=== PATIENT | female | born 1945 | race Two or more races ===

== ENCOUNTER 2020-03-05 14:35 | Inpatient (IN) | payer OTHER ==
[~2020-03-05] VITALS: Ht 157.5 cm; Wt 63.0 kg
[~2020-03-05 14:35] MED LIST: AMARY BC; ANTIVERT50 MG PO; ASPIRIN EC325 MG; COZAAR50 MG; FLEXERIL10 MG PO; GLUCOPHAGE XR500 MG PO; HYZAAR 100-121 UDTAB PO; LASIX20 MG PO; LIPOFLAVOVIT CA1 TAB PO; METOPROLOL TART50 MG; SIMVASTATIN20 MG
[2020-03-12] MEDS ORDERED: ATORVASTATIN CA10 MG PO (13:20)
[2020-03-12] MEDS ORDERED: TOPROL XL25 M1 PO (13:20)
[2020-03-12] MEDS ORDERED: ASPIR 8181 MG PO (13:21)
[2020-03-12] MEDS ORDERED: VERELAN120 MG PO (13:21)
[2020-03-12] MEDS ORDERED: OMEPRAZOLE MAGN20 MG PO (13:22)
[2020-03-12] MEDS ORDERED: OMEPRAZOLE20 M1 PO (13:22)
[2020-03-12] MEDS ORDERED: ANORO ELLIPTA1 EACH IH (13:23)
== END 2020-03-18 13:50 | disposition home or self-care (01) | DRG 331 ==
LOC: SURH 03-14 10:30 → MEDJ 03-14 10:30 → SURH 03-14 13:00 → O/R 03-14 16:22 → MEDI 03-14 16:22 → SURH 03-14 16:22 → O/R 03-15 11:31 → SURH 03-15 13:59
PROVIDERS: ADMIT Colon & Rectal Surgery; ATTEND Colon & Rectal Surgery
PROC: 07BD4ZX Excision of Aortic Lymphatic, Percutaneous Endoscopic Approach, Diagnostic (ICD-10-PCS; 2020-03-15)
PROC: 0DTF4ZZ Resection of Right Large Intestine, Percutaneous Endoscopic Approach (ICD-10-PCS; principal; 2020-03-15 07:00)
DX: C18.3 Malignant neoplasm of hepatic flexure (principal)

== ENCOUNTER 2020-06-09 15:48 | Emergency (ER) | payer OTHER ==
[~2020-06-09] VITALS: Ht 165.1 cm; Wt 54.0 kg
[~2020-06-09 15:48] MED LIST changes: +ANORO ELLIPTA1 EACH IH; +ASPIR 8181 MG PO; +ATORVASTATIN CA10 MG PO; +OMEPRAZOLE MAGN20 MG PO; +OMEPRAZOLE20 M1 PO; +TOPROL XL25 M1 PO; +VERELAN120 MG PO
[2020-06-09] MEDS ORDERED: GABAPENTIN100 M2 (16:20)
[2020-06-09] MEDS ORDERED: SYNTHROID75 MCG (16:20)
[2020-06-09] MEDS ORDERED: ESTAZOLAM2 MG (16:21)
[2020-06-09] MEDS ORDERED: MONTELUKAST SOD10 MG (16:22)
[2020-06-09] MEDS ORDERED: VITAMINA D (16:23)
[2020-06-09] MEDS ORDERED: ASCORBIC ACID 500 MG (16:24)
== END 2020-06-09 22:02 | disposition home or self-care (01) ==
LOC: ER 15:48
DX: N39.0 Urinary tract infection, site not specified (principal); K80.80 Other cholelithiasis without obstruction; K57.30 Diverticulosis of large intestine without perforation or abscess without bleeding; R10.13 Epigastric pain